=== PATIENT | male | born 1955 | race Caucasian/White ===

== ENCOUNTER 2022-02-04 12:29 | Emergency (ER) | payer MEDICARE ==
[~2022-02-04] VITALS: Ht 175.3 cm; Wt 71.2 kg
--- NOTE | 2022-02-04 13:25 | ED Lower Extremity ---
General Chief Complaint: Lower Extremity Stated Complaint: R KNEE SWELLING Nursing Triage Note: PT AMBULATE TO ROOM FT2 WITH C/O RIGHT KNEE PAIN AND SWELLING. PT DENIES INJURY. PT STATES HE HAS BEEN GETTING ON AND OFF HIS 4[employer] A LOT. PT REPORTS SWELLING FROM RIGHT KNEE TO RIGHT ANKLE. PT REPORTS BEING SEEN AT A CLINIC IN [place], [place] AND BEING SENT TO THIS ED FOR ORTHO. Source: patient Exam Limitations: no limitations (MIRANDA SAEZ) History of Present Illness Date Seen by Provider: Feb 04, 2022 Time Seen by Provider: 13:22 Initial Comments Patient is a 66-year-old male with a history of kidney transplant 19 years currently on immunosuppressants who presents to the ED with right knee swelling redness and pain. Reports pain over the past week. Dull achy pain worse with movement. 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 Denies of any specific injury. Started noting swelling and redness radiating down into the ankle 2 days ago. Patient was seen at a clinic in [place] who recommended come to ED for further evaluation. No history of previous knee joint replacement. Patient reports some mild chills but denies fever, nausea, vomiting, diarrhea, cough, shortness of breath. (MIRANDA SAEZ) Allergies and Home Medications Allergies Coded Allergies: No Known Allergies (Verified Allergy, Unknown, 03/15/06) Patient Home Medication List Home Medication List Reviewed: Yes (MIRANDA SAEZ) Doxycycline Monohydrate (Doxycycline Monohydrate) 100 Mg Tablet, 100 MG PO BID Prescribed by: PAULO PETERSON on 02/04/22 1531 Sulfamethoxazole/Trimethoprim (Bactrim Ds Tablet) 800 Mg-160 Mg Tablet, 1 EACH PO BID Prescribed by: PAULO PETERSON on 02/04/22 1531 Review of Systems Constitutional: No chills, No diaphoresis, No malaise, No weakness EENTM: No ear pain, No blurred vision, No double vision Respiratory: No cough, No short of breath, No wheezing Cardiovascular: No chest pain, No edema Genitourinary: No decreased output, No discharge Musculoskeletal: No back pain; joint pain, joint swelling, muscle pain Skin: change in color (MIRANDA SAEZ) All Other Systems Reviewed Negative Unless Noted: Yes (MIRANDA SAEZ) Past Pesflwf-Ccaumf-Azbmkd Hx Patient Social History Tobacco Use?: No Smoking Status: Never a Smoker Smokeless Tobacco Frequency: Never a User Use of E-Cig and/or Vaping dev: No Use of E-Cig and/or Vaping Julio Cesar: Never a User Substance use?: No Alcohol Use?: No Pt feels they are or have been: No (MIRANDA SAEZ) Physical Exam Vital Signs Vital Signs - First Documented 02/04/22 02/04/22 12:47 15:35 Temp 36.0 Pulse 74 Resp 16 B/P (MAP) 134/73 (93) Pulse Ox 100 O2 Delivery Room Air (SREE YIN MD) Vital Signs Capillary Refill : Less Than 3 Seconds (MIRANDA SAEZ) Height, Weight, BMI Height: '" Weight: lbs. oz. kg; 23.00 BMI Method: General Appearance: WD/WN, no apparent distress HEENT: PERRL/EOMI, normal ENT inspection, TMs normal, pharynx normal Neck: non-tender, full range of motion, supple Cardiovascular: regular rate, rhythm, no edema, no gallop, no JVD Respiratory: chest non-tender, lungs clear, normal breath sounds, no respiratory distress Gastrointestinal: normal bowel sounds, non tender, soft, no organomegaly Back: normal inspection Knees: bilateral knee normal range of motion; right knee pain, right knee soft tissue tenderness, right knee swelling Ankles: bilateral ankle non-tender, bilateral ankle normal inspection, bilateral ankle normal range of motion Feet: bilateral foot non-tender, bilateral foot normal inspection, bilateral foot normal range of motion 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 Erythema swelling distally to the ankle.) (MIRANDA SAEZ) Progress/Results/Core Measures Results/Orders Lab Results Laboratory Tests Test 02/04/22 13:27 02/04/22 15:16 Range/Units White Blood Count 8.9 4.3-11.0 10^3/uL Red Blood Count 4.07 L 4.30-5.52 10^6/uL Hemoglobin 12.6 L 13.3-17.7 g/dL Hematocrit 38 L 40-54 % Mean Corpuscular Volume 94 80-99 fL Mean Corpuscular Hemoglobin 31 25-34 pg Mean Corpuscular Hemoglobin Concent 33 32-36 g/dL Red Cell Distribution Width 12.9 10.0-14.5 % Platelet Count 219 130-400 10^3/uL Mean Platelet Volume 9.2 9.0-12.2 fL Immature Granulocyte % (Auto) 0 % Neutrophils (%) (Auto) 87 H 42-75 % Lymphocytes (%) (Auto) 7 L 12-44 % Monocytes (%) (Auto) 5 0-12 % Eosinophils (%) (Auto) 1 0-10 % Basophils (%) (Auto) 0 0-10 % Neutrophils # (Auto) 7.8 1.8-7.8 10^3/uL Lymphocytes # (Auto) 0.6 L 1.0-4.0 10^3/uL Monocytes # (Auto) 0.4 0.0-1.0 10^3/uL Eosinophils # (Auto) 0.1 0.0-0.3 10^3/uL Basophils # (Auto) 0.0 0.0-0.1 10^3/uL Immature Granulocyte # (Auto) 0.0 0.0-0.1 10^3/uL Neutrophils % (Manual) 80 % Lymphocytes % (Manual) 9 % Monocytes % (Manual) 5 % Eosinophils % (Manual) 2 % Basophils % (Manual) 2 % Band Neutrophils 2 % Blood Morphology Comment NORMAL Erythrocyte Sedimentation Rate 66 H 0-30 MM/HR Sodium Level 135 135-145 MMOL/L Potassium Level 4.7 3.6-5.0 MMOL/L Chloride Level 105 98-107 MMOL/L Carbon Dioxide Level 22 21-32 MMOL/L Anion Gap 8 5-14 MMOL/L Blood Urea Nitrogen 26 H 7-18 MG/DL Creatinine 1.52 H 0.60-1.30 MG/DL Estimat Glomerular Filtration Rate 50 BUN/Creatinine Ratio 17 Glucose Level 310 H 70-105 MG/DL Calcium Level 8.9 8.5-10.1 MG/DL Corrected Calcium 9.3 8.5-10.1 MG/DL Total Bilirubin 0.5 0.1-1.0 MG/DL Aspartate Amino Transf (AST/SGOT) 15 5-34 U/L Alanine Aminotransferase (ALT/SGPT) 16 0-55 U/L Alkaline Phosphatase 60 40-136 U/L C-Reactive Protein High Sensitivity 6.06 H 0.00-0.50 MG/DL Total Protein 7.1 6.4-8.2 GM/DL Albumin 3.5 3.2-4.5 GM/DL Lactic Acid Level 1.18 0.50-2.00 MMOL/L (SREE YIN MD) Vital Signs/I&O 02/04/22 02/04/22 12:47 15:35 Temp 36.0 Pulse 74 68 Resp 16 14 B/P (MAP) 134/73 (93) 137/79 Pulse Ox 100 O2 Delivery Room Air Room Air 02/05/22 00:00 Intake Total 50 ml Balance 50 ml (SREE YIN MD) Blood Pressure Mean: 93 Departure Communication (PCP) Patient is immunocompromise. Bilateral kidney replacement presents to ED with anterior and swelling to the right anterior knee. Does have adequate movement. Swelling and erythema distally. Ultrasound was negative for DVT. This appears to be more prepatellar bursitis. Denies of any specific injury. Pain over the past week or so with redness and swelling over the past few days. Patient was afebrile. Was not tachycardic. Was given dose of clindamycin. Slight elevated CRP and ESR. Normal white blood count. X-ray was negative for fracture, it did note a loosened body intra-articular that may need further orthopedic follow-up. Creatinine of 1.52, BUN of 26. Likely more chronic. He is currently on immunosuppressants. Due to being in immunocompromise and currently on immunosuppressants knee should be treated for potential bacterial etiology. Significant redness and swelling limiting aspiration of the bursa. Do not want inject infection intra-articular. Patient was discussed with Dr. Martinez who discussed patient with Dr. Toth who recommended Bactrim and doxycycline for 10 days. Recommend ice. NSAIDs was not prescribed secondary to kidney function and history of kidney transplant. Refused any other pain medication. Orthopedic outpatient follow-up for further evaluation. If any worsening redness, swelling, limited range of motion of the right knee to return back to ED for further evaluation (MIRANDA SAEZ) Impression Primary Impression: Prepatellar bursitis Disposition: 01 HOME, SELF-CARE Condition: Stable Departure-Patient Inst. Decision time for Depature: 15:30 (MIRANDA SAEZ) Referrals: NO,LOCAL PHYSICIAN (PCP) Primary Care Physician SEGUN MUNOZ APRN (Family) Primary Care Physician Patient Instructions: Prepatellar Bursitis (DC) Scripts Doxycycline Monohydrate (Doxycycline Monohydrate) 100 Mg Tablet 100 MG PO BID for 10 Days, #20 TAB Prov: MIRANDA SAEZ 02/04/22 Sulfamethoxazole/Trimethoprim (Bactrim Ds Tablet) 800 Mg-160 Mg Tablet 1 EACH PO BID for 10 Days, #20 TAB Prov: MIRANDA SAEZ 02/04/22 ATTENDING PHYSICIAN NOTE: I was physically present as attending physician in the emergency department during the care of this patient, but I was not directly involved in the decision making or delivery of care for this patient. (SREE YIN MD) MIRANDA SAEZ Feb 04, 2022 13:25 SREE YIN MD Feb 05, 2022 20:34
[2022-02-04] MEDS ORDERED: CLINDAMYCIN 600 MG/50 ML IVPB 50 ML IV ONE (13:30)
[2022-02-04 13:35] LABS: BASOPHILS % (AUTO) 0 % (0-10); EOSINOPHILS # (AUTO) 0.1 10^3/uL (0.0-0.3); EOSINOPHILS % (AUTO) 1 % (0-10); HEMATOCRIT 38 % (40-54); HEMOGLOBIN 12.6 g/dL (13.3-17.7); LYMPHOCYTES # (AUTO) 0.6 10^3/uL (1.0-4.0); LYMPHOCYTES % (AUTO) 7 % (12-44); MEAN CORPUSCULAR HEMOGLOBIN 31 pg (25-34); MEAN CORPUSCULAR HGB CONC 33 g/dL (32-36); MEAN CORPUSCULAR VOLUME 94 fL (80-99); MEAN PLATELET VOLUME 9.2 fL (9.0-12.2); MONOCYTES # (AUTO) 0.4 10^3/uL (0.0-1.0); MONOCYTES % (AUTO) 5 % (0-12); NEUTROPHILS # (AUTO) 7.8 10^3/uL (1.8-7.8); NEUTROPHILS % (AUTO) 87 % (42-75); PLATELET COUNT 219 10^3/uL (130-400); WHITE BLOOD COUNT 8.9 10^3/uL (4.3-11.0)
[2022-02-04 13:50] LABS: ALBUMIN 3.5 GM/DL (3.2-4.5); POTASSIUM 4.7 MMOL/L (3.6-5.0)
[2022-02-04 13:51] LABS: CALCIUM 8.9 MG/DL (8.5-10.1)
[2022-02-04 13:52] LABS: TOTAL PROTEIN 7.1 GM/DL (6.4-8.2)
[2022-02-04 13:54] LABS: BILIRUBIN,TOTAL 0.5 MG/DL (0.1-1.0)
[2022-02-04 13:56] LABS: CREATININE SERUM 1.52 MG/DL (0.60-1.30)
[2022-02-04 13:57] LABS: ERYTHROCYTE SEDIMENTATION RATE 66 MM/HR (0-30)
[2022-02-04 14:09] LABS: BAND NEUTROPHILS 2 %; BASOPHILS % (MANUAL) 2 %; EOSINOPHILS % (MANUAL) 2 %; LYMPHOCYTES % (MANUAL) 9 %; MONOCYTES % (MANUAL) 5 %; NEUTROPHILS % (MANUAL) 80 %; RBC MORPH NORMAL
--- NOTE | 2022-02-04 14:35 | Diagnostic Imaging Report ---
PROCEDURE: US right lower extremity venous. TECHNIQUE: Multiple real-time grayscale images were obtained over the right lower extremity in various projections. Additional spectral analysis and color Doppler duplex images were also obtained. INDICATION: Swelling. FINDINGS: Right lower extremity femoropopliteal deep venous system showed normal color flow, normal compressibility, and normal waveforms. No deep or superficial thrombus is found and no fluid collection demonstrated. IMPRESSION: Normal negative unilateral right lower extremity venous Doppler and ultrasound exam. Dictated by: Dictated on workstation # [id number]
--- NOTE | 2022-02-04 15:04 | Diagnostic Imaging Report ---
INDICATION: Right knee pain and swelling. TIME OF EXAM: 02:36 p.m. TECHNIQUE: Four views of the right knee were obtained. FINDINGS: Alignment is normal. Joint spaces are well maintained. Articular surfaces are smooth. There is some patellofemoral degenerative change. No fracture, dislocation or effusion is seen. There is soft tissue swelling in the prepatellar tendon locations. There is a calcific density noted in Hoffa's fat on the lateral view, suggestive of a loose body. IMPRESSION: 1. Soft tissue swelling. No acute bony abnormality is detected. 2. Findings suggestive of an intra-articular loose body. Dictated by: Dictated on workstation # [id number]
[2022-02-04] MEDS ORDERED: DOXY100T31 PO (15:31)
[2022-02-04] MEDS ORDERED: SULF-221 PO (15:31)
[2022-02-04 15:35] VITALS: BP 137/79
== END 2022-02-04 15:35 | disposition home or self-care (01) ==
LOC: EDUNIT# 12:29 → ER 12:32
DX: M70.41 Prepatellar bursitis, right knee (principal); L53.9 Erythematous condition, unspecified; R79.82 Elevated C-reactive protein (CRP); R70.0 Elevated erythrocyte sedimentation rate; D84.9 Immunodeficiency, unspecified; Z94.0 Kidney transplant status; Z28.310 Unvaccinated for COVID-19
CPT/HCPCS: 36415; 73562; 80053; 83605; 85007; 85027; 85652; 86141